=== PATIENT | female | born 1965 | race Caucasian/White ===

== ENCOUNTER 2016-08-05 19:57 | Emergency (ER) | payer OTHER ==
[~2016-08-05] VITALS: Ht 165.1 cm; Wt 89.8 kg
[~2016-08-05 19:57] MED LIST: MOTRIN600 MG PO; VITAMIN D50000 I2
[2016-08-05 20:16] VITALS: BP 137/73
--- NOTE | 2016-08-05 21:57 | NUR ---
TO ER OF2
--- NOTE | 2016-08-05 22:15 | NUR ---
Patient being evaluated by physician.
--- NOTE | 2016-08-05 22:28 | NUR ---
51Y/F PT. BIB FAMILY TO ED WITH C/O BOTH ANKLE PAIN X 2 DAYS. PT. STATES SLIDED 2 DAYS AGO, TODAY PAIN INCREASES WITH BOTH ANKLE SWELLING. AAO X4, AMBULATORY WITH ASSIST. BOTH ANKLES MILD SWELLING. C/O PAIN 01/15. VSS, NO S/SX OF DISTRESS NOTED. ER MD MADE AWARE OF PT. STATUS.
--- NOTE | 2016-08-05 22:30 | NUR ---
Patient discharged with v/s stable. Written and verbal after care instructions given and explained. Patient alert, oriented and verbalized understanding of instructions. Ambulatory with steady gait. All questions addressed prior to discharge. ID band removed. Patient advised to follow up with PMD. Rx of NORCO 7.5/325 MG given. Patient educated on indication of medication including possible reaction and side effects. Opportunity to ask questions provided and answered.
[2016-08-05 22:35] VITALS: BP 132/75
== END 2016-08-05 22:30 | disposition home or self-care (01) ==
LOC: MED 19:57
DX: S90.32XA Contusion of left foot, initial encounter (principal); S90.31XA Contusion of right foot, initial encounter; S80.212A Abrasion, left knee, initial encounter; S50.312A Abrasion of left elbow, initial encounter; X58.XXXA Exposure to other specified factors, initial encounter; Y93.89 Activity, other specified; Y92.89 Other specified places as the place of occurrence of the external cause; Y99.8 Other external cause status

== ENCOUNTER 2016-10-12 15:32 | Emergency (ER) | payer OTHER ==
[~2016-10-12] VITALS: Ht 165.1 cm; Wt 85.8 kg
[2016-10-12 15:49] VITALS: BP 120/69
[2016-10-12 16:36] LABS: APPEARANCE,URINE CLEAR (CLEAR); BILIRUBIN,URINE NEGATIVE (NEGATIVE); BLOOD, URINE NEGATIVE (NEGATIVE); COLOR,URINE YELLOW (YELLOW); LEUKOCYTE ESTERASE ,URINE NEGATIVE (NEGATIVE); NITRITE, URINE NEGATIVE (NEGATIVE); PROTEIN,URINE NEGATIVE (NEGATIVE); UGLUCOSE NEGATIVE (NEGATIVE); UROBILINOGEN,URINE 0.2 EU/dL (0.2 - 1)
[2016-10-12 16:43] LABS: BASOPHILS # (AUTO) 0.3 K/uL (0.00-0.22); EOSINOPHILS # (AUTO) 0.3 K/uL (0-0.4); HEMATOCRIT 41.2 % (36-48); HEMOGLOBIN 13.6 g/dL (12.0-16.0); MEAN CORPUSCULAR HEMOGLOBIN 32 pg (27-31); MEAN CORPUSCULAR HGB CONC 33 g/dL (33-37); MEAN CORPUSCULAR VOLUME 96 fL (80-94); MONOCYTES # (AUTO) 0.4 K/uL (0.8-1.0); MONOCYTES % (AUTO) 5.2 % (1.7-9.3); NEUTROPHILS # (AUTO) 4.2 K/uL (1.8-7.7); PLATELET COUNT (AUTO) 166 K/uL (140-450); RED BLOOD CELL COUNT(AUTO) 4.28 MIL/uL (4.20-5.40); RED CELL DISTRIBUTION WIDTH 12.2 % (11.6-13.7); WHITE BLOOD COUNT (AUTO) 7.2 K/uL (4.8-10.8)
[2016-10-12 17:04] LABS: ANION GAP 12.3 (8-16); CALCIUM 8.4 mg/dL (8.5-10.1); CARBON DIOXIDE 27.7 mmol/L (21-32); CREATININE 0.7 mg/dL (0.6-1.3)
[2016-10-12 17:09] LABS: ALBUMIN 3.9 g/dL (3.4-5.0); TOTAL BILIRUBIN 0.3 mg/dL (0.0-1.0)
--- NOTE | 2016-10-12 18:18 | NUR ---
PATIENT AMBULATED TO ER BED 3.
--- NOTE | 2016-10-12 18:20 | NUR ---
PATIENT PRESENTS TO ED WITH DIZZINESS . PT STATES . DENIES N/V/D; SKIN IS PINK/WARM/DRY; AAOX4 WITH EVEN AND STEADY GAIT; LUNGS CLEAR BL; HR EVEN AND REGULAR; PT DENIES ANY FEVER, CP, SOB, OR COUGH AT THIS TIME; PATIENT STATES PAIN OF 0/10 AT THIS TIME; VSS; PATIENT POSITIONED FOR COMFORT; HOB ELEVATED; BEDRAILS UP X2; BED DOWN. ER MD MADE AWARE OF PT STATUS.
[2016-10-12] MEDS ORDERED: NACL 0.9% 1,000 ML IV ONE (18:50)
[2016-10-12] MEDS ORDERED: MECLIZINE 25 MG TAB PO ONE (18:50)
--- NOTE | 2016-10-12 19:04 | NUR ---
IV 20GA PLACED BUT DC'D STYE INTACT, PT C/O PAIN TO SITE
--- NOTE | 2016-10-12 19:20 | NUR ---
PT RESTING IN BED, NO S/S OF DSITRESS NOTED AT THE MOMENT. WILL CONT TO MONITOR.
--- NOTE | 2016-10-12 20:08 | NUR ---
Dr. Murray evaluating patient at bedside.
[2016-10-12 20:30] VITALS: BP 124/63
--- NOTE | 2016-10-12 20:30 | NUR ---
Patient discharged with v/s stable. Written and verbal after care instructions given and explained. Patient alert, oriented and verbalized understanding of instructions. Ambulatory with steady gait. All questions addressed prior to discharge. ID band removed. Patient advised to follow up with PMD OR RETURN TO ER IF CONDITION WORSENS. Rx of MECLIZINE HYDROCHLORIDE given. Patient educated on indication of medication including possible reaction and side effects. Opportunity to ask questions provided and answered.
== END 2016-10-12 20:30 | disposition home or self-care (01) ==
LOC: MED 15:32
DX: H81.10 Benign paroxysmal vertigo, unspecified ear (principal); F17.210 Nicotine dependence, cigarettes, uncomplicated; Z71.6 Tobacco abuse counseling; Z88.0 Allergy status to penicillin
CPT/HCPCS: 36415; 70450; 80053; 81003; 81025; 84484; 85025; 93005; 96360; 99285; J7030; J8597

== ENCOUNTER 2017-01-14 16:20 | Emergency (ER) | payer OTHER ==
[~2017-01-14] VITALS: Ht 165.1 cm; Wt 89.9 kg
[2017-01-14 16:53] VITALS: BP 107/62
--- NOTE | 2017-01-14 19:18 | NUR ---
PT AMBULATED TO TF1
[2017-01-14] MEDS ORDERED: KETOROLAC 60 MG/2 ML VIAL IM ONE (19:30)
[2017-01-14 20:20] VITALS: BP 135/68
--- NOTE | 2017-01-14 20:28 | NUR ---
Patient discharged with v/s stable. Written and verbal after care instructions given and explained. Patient alert, oriented and verbalized understanding of instructions. Ambulatory with steady gait. All questions addressed prior to discharge. ID band removed. Patient advised to follow up with PMD. Rx of NORCO 5MG-325MG, MEDROL 4MG given. Patient educated on indication of medication including possible reaction and side effects. Opportunity to ask questions provided and answered.
== END 2017-01-14 20:18 | disposition home or self-care (01) ==
LOC: MED 16:20
DX: M54.42 Lumbago with sciatica, left side (principal); M54.41 Lumbago with sciatica, right side; Z88.0 Allergy status to penicillin
CPT/HCPCS: 72100; 96372; 99284; J1885

== ENCOUNTER 2017-07-17 21:39 | Emergency (ER) | payer OTHER ==
[~2017-07-17] VITALS: Ht 165.1 cm; Wt 90.7 kg
[2017-07-17 21:43] VITALS: BP 134/73
--- NOTE | 2017-07-17 22:24 | NUR ---
Patient ambulated to chair A. RN evaluating patient.
--- NOTE | 2017-07-17 23:11 | NUR ---
Dr. Zelaya evaluating patient.
[2017-07-18] VITALS: BP 129/65
--- NOTE | 2017-07-18 | NUR ---
Patient discharged with v/s stable. Written and verbal after care instructions given and explained. Patient alert, oriented and verbalized understanding of instructions. Ambulatory with steady gait. All questions addressed prior to discharge. ID band removed. Patient advised to follow up with PMD. Rx of Z-pack given. Patient educated on indication of medication including possible reaction and side effects. Opportunity to ask questions provided and answered.
== END 2017-07-18 | disposition home or self-care (01) ==
LOC: MED 21:39
DX: J32.9 Chronic sinusitis, unspecified (principal); J40 Bronchitis, not specified as acute or chronic; Z71.6 Tobacco abuse counseling; Z88.0 Allergy status to penicillin
CPT/HCPCS: 99283

== ENCOUNTER 2018-02-18 06:58 | Emergency (ER) | payer OTHER ==
[~2018-02-18] VITALS: Ht 165.1 cm; Wt 90.7 kg
[2018-02-18 07:02] VITALS: BP 110/65
[2018-02-18 07:36] VITALS: BP 112/68
== END 2018-02-18 07:42 | disposition home or self-care (01) ==
LOC: MED 06:58
DX: N39.0 Urinary tract infection, site not specified (principal); J45.909 Unspecified asthma, uncomplicated; Z88.0 Allergy status to penicillin; Z87.442 Personal history of urinary calculi
CPT/HCPCS: 81002; 99283

== ENCOUNTER 2018-04-01 13:12 | Emergency (ER) | payer OTHER ==
[~2018-04-01] VITALS: Ht 165.1 cm; Wt 94.3 kg
[2018-04-01 13:17] VITALS: BP 116/55
--- NOTE | 2018-04-01 13:17 | NUR ---
PT AMBULATED TO ER BED 02
--- NOTE | 2018-04-01 13:40 | NUR ---
C/O COUGH CONGESTION BODYACHES HEADACHE RHINORRHEA X 2 DAYS. DENIES N/V/D; SKIN IS PINK/WARM/DRY; AAOX4 WITH EVEN AND STEADY GAIT; LUNGS CLEAR BL; HR EVEN AND REGULAR; PT DENIES ANY FEVER, CP, SOB AT THIS TIME; PATIENT STATES PAIN OF 6/10 AT THIS TIME; VSS; PATIENT POSITIONED FOR COMFORT; HOB ELEVATED; BEDRAILS UP X2; BED DOWN. ER MD MADE AWARE OF PT STATUS.
[2018-04-01] MEDS ORDERED: CLINDAMYCIN 600 MG/4 ML VIAL IM ONE (13:55)
[2018-04-01] MEDS ORDERED: DEXAMETHASONE 10 MG/ML VIAL IM ONE (13:55)
[2018-04-01] MEDS ORDERED: ALBUTEROL SULFATE/IPRATROPIU 3 ML SOL IH ONE (13:55)
[2018-04-01] MEDS ORDERED: hydrOXYzine HCL 25 MG TAB PO ONE (13:55)
--- NOTE | 2018-04-01 14:00 | NUR ---
NO STATED NEEDS AT THIS TIME.
--- NOTE | 2018-04-01 14:18 | NUR ---
ADMITTING DX: COUGH HX: DENIES COPD ASTHMA SOB LOC AWAKE AND ALERT RESPONSIVE TO DINING ROOM SUPERVISOR VERBAL COMMANDS EDUCATION PROVIDED TO PATIENT WITH ACKNOWLEDGEMENT ON HHN THERAPY AND RESPIRATORY DRUG HHN THERAPY GIVEN ORDERED ENCOURAGE FOR INTERMITTENT DEEP BREATHING DURING THERAPY TOLERATED WELL WITHOUT INCIDENT
[2018-04-01 14:51] VITALS: BP 116/55
--- NOTE | 2018-04-01 14:52 | NUR ---
Patient discharged with v/s stable. Written and verbal after care instructions given and explained. Patient alert, oriented and verbalized understanding of instructions. Ambulatory with steady gait. All questions addressed prior to discharge. ID band removed. Patient advised to follow up with PMD. Rx of AZITHROMYCIN, PREDNISONE, PROMETHAZINE given. Patient educated on indication of medication including possible reaction and side effects. Opportunity to ask questions provided and answered.
== END 2018-04-01 14:52 | disposition home or self-care (01) ==
LOC: MED 13:12
DX: J32.9 Chronic sinusitis, unspecified (principal); J40 Bronchitis, not specified as acute or chronic; J45.909 Unspecified asthma, uncomplicated; Z88.0 Allergy status to penicillin
CPT/HCPCS: 94640; 96372; 99283; J1100; J3490; J7620

== ENCOUNTER 2018-06-05 13:18 | Emergency (ER) | payer OTHER ==
[~2018-06-05] VITALS: Ht 165.1 cm; Wt 95.7 kg
[2018-06-05 13:28] VITALS: BP 125/71
--- NOTE | 2018-06-05 13:31 | NUR ---
PT TRIAGED AND SENT TO ER LOBBY
--- NOTE | 2018-06-05 14:54 | NUR ---
PT TO ER BED 2
--- NOTE | 2018-06-05 15:00 | NUR ---
FIRST CONTACT WITH PATIENT PATIENT BIB SELF C/O L ARM AROUND DELTOID REGION PAIN SINCE THIS MORNING. PATIENT STATES " I DID NOT SLEEP ON IT, NO RECENT INJURY/TRAUMA." PATIENT +ROM, CAP REFILL IMMEDIATE DISTAL TO PAIN. PATIENT STATES PAIN WORSE WITH MOVEMENT, 7/10 PAIN, NON RADIAITING. PATIENT GCS 15, AAOX4, BREATHING IS EVEN AND UNLABORED, EQUAL RISE AND FALL OF CHEST. NO ACUTE DISTRESS NOTED, WILL CONTINUE TO MONITOR CLOSELY.
[2018-06-05 17:26] VITALS: BP 119/84
--- NOTE | 2018-06-05 17:27 | NUR ---
Patient discharged with v/s stable. Written and verbal after care instructions given and explained. Patient alert, oriented and verbalized understanding of instructions. Ambulatory with steady gait. All questions addressed prior to discharge. ID band removed. Patient advised to follow up with PMD. Rx of TRAMADOL, NAPROSYN given. Patient educated on indication of medication including possible reaction and side effects. Opportunity to ask questions provided and answered. NO SLING GIVEN. PATIENT REFUESED.
== END 2018-06-05 17:27 | disposition home or self-care (01) ==
LOC: MED 13:18
DX: M25.512 Pain in left shoulder (principal); Z88.0 Allergy status to penicillin; Z87.442 Personal history of urinary calculi
CPT/HCPCS: 73030; 99283; Q0092

== ENCOUNTER 2018-07-17 19:58 | Emergency (ER) | payer OTHER ==
[~2018-07-17] VITALS: Ht 165.1 cm; Wt 97.5 kg
[2018-07-17 20:04] VITALS: BP 121/65
--- NOTE | 2018-07-17 20:06 | NUR ---
TO LOBBY A/W BED, SUDHIR LEIJA NOTED
--- NOTE | 2018-07-17 20:21 | NUR ---
PT C/O L HEEL PAIN 9/10 SORENESS X 3 DAYS. DENIES TRAUMA, INJURY, NO DEFORMITY NOTED. CMS INTACT. PT ON CHAIR AWAITING MSE.
--- NOTE | 2018-07-17 20:22 | NUR ---
PA EVALUATING PT
[2018-07-17] MEDS ORDERED: KETOROLAC 30 MG/ML VIAL IM ONE (20:25)
--- NOTE | 2018-07-17 20:33 | NUR ---
PT TAKEN TO RAD AT THIS TIME VIA WHEELCHAIR
--- NOTE | 2018-07-17 20:39 | NUR ---
PT RETURNED FROM RAD VIA WHEELCHAIR
[2018-07-17 21:50] VITALS: BP 122/64
== END 2018-07-17 21:50 | disposition home or self-care (01) ==
LOC: MED 19:58
DX: M79.672 Pain in left foot (principal); J45.909 Unspecified asthma, uncomplicated; Z88.0 Allergy status to penicillin
CPT/HCPCS: 73630; 87804; 99283

== ENCOUNTER 2018-07-20 17:45 | Emergency (ER) | payer OTHER ==
[~2018-07-20] VITALS: Ht 165.1 cm; Wt 97.5 kg
[2018-07-20 17:51] VITALS: BP 132/79
--- NOTE | 2018-07-20 18:33 | NUR ---
Patient ambulated to bed 6. RN evaluating patient at bedside.
--- NOTE | 2018-07-20 18:55 | NUR ---
BIB SELF. AAOX4. C/O HEADACHE PAIN 10/ AND COUGH SINCE YESTERDAY, PAIN TO LEFT RIB WITH COUGH. PT STATES YELLOW PHLEGM UPON EXPECTORATION. NO SOB NOTED. HOB UP. BED SIDE RAILS UP X 1. ON LOW BED POSITION, LOCKED. ER MADE AWARE OF PT STATUS.
--- NOTE | 2018-07-20 19:15 | NUR ---
Pt report given to JADEN Mariee. Transfer of care at this time.
[2018-07-20] MEDS ORDERED: ACETAMIN/CODEINE 120/12MG-5ML 5 ML UDC PO ONE (19:50)
[2018-07-20] MEDS ORDERED: KETOROLAC 30 MG/ML VIAL IM ONE (19:50)
--- NOTE | 2018-07-20 19:55 | NUR ---
ENCOURAGED PT TO PROVIDE URINE SAMPLE.
--- NOTE | 2018-07-20 19:59 | NUR ---
[facility] HASTINGS COLLECTED AND SENT W/ ARCHITECTURAL PRACTICE MANAGER/
--- NOTE | 2018-07-20 20:04 | NUR ---
X-RAY AT BEDSIDE.
[2018-07-20 21:32] LABS: APPEARANCE,URINE CLEAR (CLEAR); BILIRUBIN,URINE NEGATIVE (NEGATIVE); BLOOD, URINE TRACE-I (NEGATIVE); COLOR,URINE YELLOW (YELLOW); LEUKOCYTE ESTERASE ,URINE TRACE (NEGATIVE); NITRITE, URINE NEGATIVE (NEGATIVE); PH,URINE 6.5 (5.0-9.0); UGLUCOSE NEGATIVE (NEGATIVE)
[2018-07-20 21:33] LABS: RBC,URINE 0-5 /HPF (0-5); WBC,URINE 0-5 /HPF (0-5)
[2018-07-20 22:22] VITALS: BP 138/79
--- NOTE | 2018-07-20 22:22 | NUR ---
Patient discharged with v/s stable. Written and verbal after care instructions given and explained. Patient alert, oriented and verbalized understanding of instructions. Ambulatory with steady gait. All questions addressed prior to discharge. ID band removed. Patient advised to follow up with PMD. Rx of TYLENOL 500MG AND NAPROSYN 500MG given. Patient educated on indication of medication including possible reaction and side effects. Opportunity to ask questions provided and answered.
== END 2018-07-20 22:22 | disposition home or self-care (01) ==
LOC: MED 17:45
DX: J06.9 Acute upper respiratory infection, unspecified (principal); R51 Headache; J45.909 Unspecified asthma, uncomplicated; Z88.0 Allergy status to penicillin
CPT/HCPCS: 71045; 81001; 81025; 87804; 96372; 99284; J1885; Q0092

== ENCOUNTER 2018-08-03 22:28 | Emergency (ER) | payer OTHER ==
[~2018-08-03] VITALS: Ht 165.1 cm; Wt 98.0 kg
[2018-08-03 22:31] VITALS: BP 144/77
--- NOTE | 2018-08-03 22:39 | NUR ---
PT AMBULATED TO THE LOBBY, VSS
--- NOTE | 2018-08-03 22:40 | NUR ---
PT AMBULATED TO BED 9
--- NOTE | 2018-08-03 22:47 | NUR ---
PT BIB SELF C/O COUGHING X2 WEEKS. PT STATES SHE HAS INTERMITTEN COUGHING SPELLS; DRYING HACKING COUGH, W/ YELLOWISH, GREEN PRODUCTION. PT STATES SHE QUIT SMOKING A MONTH AGO. --LUNG SOUNDS CLEAR BL. BREATHING EQUAL AND UNLABORED. DENIES N/V/D, CHILLS OR FEVER. PT STATES 0/10 PAIN. PT IN BED; BED IN LOWER LOCKED POSITION. PENDING ER MD AYALA. WILL CONTINUE TO MONITOR. PMH: HYPERLIPIDEMIA
[2018-08-03] MEDS ORDERED: ALBUTEROL SULFATE/IPRATROPIU 3 ML SOL IH ONE (23:10)
--- NOTE | 2018-08-03 23:11 | NUR ---
X-RAY AT BEDSIDE.
--- NOTE | 2018-08-03 23:40 | NUR ---
Anya montana in [facility] - 08/03/18 at 2343 by [email or web address] RT AT BEDSIDE.
[2018-08-04] MEDS ORDERED: predniSONE 20 MG TAB PO ONE (00:20)
--- NOTE | 2018-08-04 00:25 | NUR ---
DR JEREZ AT BEDSIDE
[2018-08-04 00:39] VITALS: BP 138/82
--- NOTE | 2018-08-04 00:40 | NUR ---
Patient discharged with v/s stable. Written and verbal after care instructions given and explained. Patient alert, oriented and verbalized understanding of instructions. Ambulatory with steady gait. All questions addressed prior to discharge. ID band removed. Patient advised to follow up with PMD. Rx of PREDNISONE, ALBUTEROL given. Patient educated on indication of medication including possible reaction and side effects. Opportunity to ask questions provided and answered.
== END 2018-08-04 00:40 | disposition home or self-care (01) ==
LOC: MED 22:28
DX: R05 Cough (principal); J45.909 Unspecified asthma, uncomplicated; F17.200 Nicotine dependence, unspecified, uncomplicated; Z88.0 Allergy status to penicillin
CPT/HCPCS: 71045; 94640; 94760; 99283; J7512; J7620; Q0092

== ENCOUNTER 2018-09-01 19:29 | Emergency (ER) | payer OTHER ==
[~2018-09-01] VITALS: Ht 165.1 cm; Wt 97.5 kg
--- NOTE | 2018-09-01 19:38 | NUR ---
Pt taken to bed 4.
[2018-09-01 19:40] VITALS: BP 136/72
--- NOTE | 2018-09-01 19:40 | NUR ---
PATIENT AMBULATED TO ER BED 4.
--- NOTE | 2018-09-01 19:55 | NUR ---
PT BIB SELF C/O BACK PAIN. PT STATES SUDDEN ONSET OF BACK PAIN X3 DAYS AGO; DENIES TRAUMA OR INJURY; PAIN IS 6/10 ACHING/SORE THROUGH OUT ENTIRE BACK AND SHOULERS. NO VISIBLE SIGNS OF SWELLING, REDNESS OR INJURY TO BACK OR SHOULDERS. AROM, AMBULATES W/ STEADY GAIT. --PT SITTING UP IN BED TALKING ON PHONE, BREATHING EQUAL AND UNLABORED. SPEAKING IN CLEAR AND COMPLETE SENTENCES. SAFETY PRECAUTIONS IN PLACE. PENDING ER MD AYALA. WILL CONTINUE TO MONITOR. PMH: DENIES
--- NOTE | 2018-09-01 20:22 | NUR ---
Anya montana in [facility] - 09/01/18 at [address] Abernathy evaluating patient at bedside.
--- NOTE | 2018-09-01 20:23 | NUR ---
Patient being evaluated by Dr. Abernathy at bedside.
[2018-09-01] MEDS ORDERED: KETOROLAC 60 MG/2 ML VIAL IM ONE (21:00)
[2018-09-01 21:32] LABS: APPEARANCE,URINE CLEAR (CLEAR); BILIRUBIN,URINE NEGATIVE (NEGATIVE); BLOOD, URINE NEGATIVE (NEGATIVE); COLOR,URINE YELLOW (YELLOW); NITRITE, URINE NEGATIVE (NEGATIVE); PH,URINE 6.5 (5.0-9.0); UGLUCOSE NEGATIVE (NEGATIVE)
[2018-09-01 21:35] LABS: LEUKOCYTE ESTERASE ,URINE NEGATIVE (NEGATIVE)
--- NOTE | 2018-09-01 22:45 | NUR ---
Patient discharged with v/s stable. Patient acting appropriatly, states pain has decreased to 3/10, states coping and will be following up with her primary health provider. Written and verbal after care instructions given and explained. Patient alert, oriented and verbalized understanding of instructions. Ambulatory with steady gait. All questions addressed prior to discharge. ID band removed. Rx of Naprosyn given. Patient educated on indication of medication including possible reaction and side effects. Opportunity to ask questions provided and answered.
[2018-09-01 22:46] VITALS: BP 129/78
== END 2018-09-01 22:45 | disposition home or self-care (01) ==
LOC: MED 19:29
DX: S39.012A Strain of muscle, fascia and tendon of lower back, initial encounter (principal); M54.6 Pain in thoracic spine; M25.512 Pain in left shoulder; J45.909 Unspecified asthma, uncomplicated; Z88.0 Allergy status to penicillin; X50.0XXA Overexertion from strenuous movement or load, initial encounter; Y93.89 Activity, other specified; Y92.89 Other specified places as the place of occurrence of the external cause; Y99.8 Other external cause status
CPT/HCPCS: 81003; 96372; 99283; J1885

== ENCOUNTER 2019-02-02 14:21 | Emergency (ER) | payer OTHER ==
[~2019-02-02] VITALS: Ht 165.1 cm; Wt 99.0 kg
[2019-02-02 15:19] VITALS: BP 123/66
--- NOTE | 2019-02-02 15:50 | NUR ---
PT BIBS. CAME IN FOR SIDE PAIN, NO PAIN ON URINATION. GAVE A URINE SAMPLE AT TIME OF TRIAGING. REPORTS FEVERS AND CHILLS. VSS. ALLERGY TO PENICILLIN. NO FLANK PAIN WHEN PALPATED. NO DISTENSION NOTED, CONTINENT. URINE IS YELOW AND HAZY. PMHX: KINDEY STONE 4YRS AGO RX: DENIES
[2019-02-02 15:55] VITALS: BP 123/66
--- NOTE | 2019-02-02 15:55 | NUR ---
PA EVALUATING PT AT BEDSIDE
[2019-02-02] MEDS ORDERED: KETOROLAC 60 MG/2 ML VIAL IM ONE (16:00)
--- NOTE | 2019-02-02 16:52 | NUR ---
Patient discharged with v/s stable. Written and verbal after care instructions given and explained. Patient alert, oriented and verbalized understanding of instructions. Ambulatory with steady gait. All questions addressed prior to discharge. ID band removed. Patient advised to follow up with PMD. Rx of FLEXERIL, MACROBID CAPSULE, PHENAZOPYRIDINE HYDROCHLORIDE given. Patient educated on indication of medication including possible reaction and side effects. Opportunity to ask questions provided and answered. VSS
== END 2019-02-02 16:52 | disposition home or self-care (01) ==
LOC: MED 14:21
DX: N39.0 Urinary tract infection, site not specified (principal); M54.5 Low back pain; J45.909 Unspecified asthma, uncomplicated; Z88.0 Allergy status to penicillin
CPT/HCPCS: 81002; 81025; 87086; 87186; 96372; 99283; J1885

== ENCOUNTER 2019-03-17 20:21 | Emergency (ER) | payer OTHER ==
[~2019-03-17] VITALS: Ht 165.1 cm; Wt 99.3 kg
[2019-03-17 20:35] VITALS: BP 137/74
--- NOTE | 2019-03-17 20:35 | NUR ---
53 Y/O FEMALE C/O OF CONSTIPATION SINCE TODAY. PAIN IS A 6/10 ACUTE PAIN THAT RADIATES TO THE LOWER ABDOMEN; SLIGHT TENDERNESS UPON PALPATION. ABDOMEN IS ROUND AND SOFT; BOWEL SOUNDS HEARD ON ALL FOUR QUADRANTS. LAST BOWEL MOVEMENT WAS YESTERDAY 03/16/10. NO CHANGES IN APPETITE. +NAUSEA; DENIES VOMITING. PATIENT STATES, " I JUST CAN'T GO. I'VE TRIED EVERYTHING". ERMD MADE AWARE OF STATUS. SIDE RAILSX1. PMH: HYPERLIPIDEMIA; ASTHMA RX: DENIES ALLERGIES: PCNS
--- NOTE | 2019-03-17 20:35 | NUR ---
TO BED # 12 AMBULATORY
[2019-03-17] MEDS ORDERED: MAGNESIUM CITRATE 300 ML BTL PO ONE (21:05)
--- NOTE | 2019-03-17 22:18 | NUR ---
PATIENT AMBULATED TO RESTROOM.
[2019-03-17] MEDS ORDERED: SODIUM PHOSPHATE 118 ML ENEM RC ONE (22:30)
[2019-03-17] MEDS ORDERED: LACTULOSE 20 GM/30 ML UDC PO ONE (22:30)
[2019-03-17 23:01] VITALS: BP 133/67
--- NOTE | 2019-03-17 23:01 | NUR ---
Patient discharged with v/s stable. Written and verbal after care instructions given and explained. Patient alert, oriented and verbalized understanding of instructions. Ambulatory with steady gait. All questions addressed prior to discharge. ID band removed. Patient advised to follow up with PMD. Rx of MIRALAX POWDER given. Patient educated on indication of medication including possible reaction and side effects. Opportunity to ask questions provided and answered.
== END 2019-03-17 23:01 | disposition home or self-care (01) ==
LOC: MED 20:21
DX: K59.00 Constipation, unspecified (principal); J45.909 Unspecified asthma, uncomplicated; Z88.0 Allergy status to penicillin
CPT/HCPCS: 99283

== ENCOUNTER 2019-05-01 20:22 | Emergency (ER) | payer OTHER ==
[~2019-05-01] VITALS: Ht 165.1 cm; Wt 99.8 kg
[2019-05-01 20:30] VITALS: BP 141/76
--- NOTE | 2019-05-01 20:35 | NUR ---
PATIENT AMB TO LOBBY.
--- NOTE | 2019-05-01 20:35 | NUR ---
54 y/o female c/o neck pain, denies n/v/d. +rom; denies fever chills. ermd made aware of status. pmh:hyperlipidemia rx:denies allergies:pcns
[2019-05-01 22:38] VITALS: BP 121/76
== END 2019-05-01 22:38 | disposition home or self-care (01) ==
LOC: MED 20:22
DX: S16.1XXA Strain of muscle, fascia and tendon at neck level, initial encounter (principal); J45.909 Unspecified asthma, uncomplicated; Z88.0 Allergy status to penicillin; X58.XXXA Exposure to other specified factors, initial encounter; Y93.89 Activity, other specified; Y92.89 Other specified places as the place of occurrence of the external cause; Y99.8 Other external cause status
CPT/HCPCS: 99282

== ENCOUNTER 2020-03-03 22:25 | Emergency (ER) | payer OTHER ==
[~2020-03-03] VITALS: Ht 165.1 cm; Wt 100.7 kg
[2020-03-03 22:31] VITALS: BP 169/89
--- NOTE | 2020-03-03 22:36 | NUR ---
54 YO F BIB SELF WITH C/C OF 8/10 SORE/SHARP RT ELBOW PAIN X2DAYS. PT STATED PAIN WORSENS ON MOVEMENT. LIMITED ROM DUE TO PAIN. DENIES FALL OR TRAUMA. RADIAL PULSES PRESENT AND BILAT. PT STATED SHE HAS BEEN TAKING IBUPROFEN FOR PAIN WITH LITTLE RELIEF. BED LOCKED IN LOWEST POSITION, SIDE RAILS X1. HX: DENIES RX: DENIES ALLERGY: PCN
--- NOTE | 2020-03-03 22:50 | NUR ---
ERMD AT BEDSIDE.
[2020-03-03] MEDS ORDERED: KETOROLAC 30 MG/ML VIAL IM ONE (23:00)
--- NOTE | 2020-03-03 23:02 | NUR ---
RAD AT BEDSIDE
--- NOTE | 2020-03-03 23:14 | NUR ---
EMT AT BEDSIDE FOR TX.
--- NOTE | 2020-03-03 23:32 | NUR ---
PT'S PAIN CONT 11/15. STATED SHE DOESN'T NEED FURTHER PAIN MANAGEMENT.
--- NOTE | 2020-03-03 23:34 | NUR ---
PTS RIGHT ELBOW WAS PLACED IN A ANGEL WRAP. PTS PMSC WNL. SHOULDER SLING PLACED TO IMOBOLIZE PTS RIGHT ARM .
[2020-03-03 23:40] VITALS: BP 169/89
== END 2020-03-03 23:40 | disposition home or self-care (01) ==
LOC: MED 22:25
DX: M25.521 Pain in right elbow (principal); J45.909 Unspecified asthma, uncomplicated; Z88.0 Allergy status to penicillin
CPT/HCPCS: 73080; 96372; 99283; J1885

== ENCOUNTER 2020-03-25 18:40 | Emergency (ER) | payer OTHER ==
[~2020-03-25] VITALS: Ht 165.1 cm; Wt 102.1 kg
[2020-03-25 18:48] VITALS: BP 152/88
--- NOTE | 2020-03-25 18:50 | NUR ---
Patient given urine cup and ambulated to lobby
[2020-03-25 19:49] LABS: APPEARANCE,URINE CLOUDY (CLEAR); BILIRUBIN,URINE NEGATIVE (NEGATIVE); BLOOD, URINE 3+ (NEGATIVE); COLOR,URINE AMBER (YELLOW); LEUKOCYTE ESTERASE ,URINE NEGATIVE (NEGATIVE); NITRITE, URINE NEGATIVE (NEGATIVE); UGLUCOSE NEGATIVE (NEGATIVE)
--- NOTE | 2020-03-25 20:05 | NUR ---
DISCHARGE AND RX INSTRUCTIONS GIVEN TO PT BY SUZIE DORSEY. PT SENT HOME WITH TYLENOL AND BACTRIM.
[2020-03-25 20:13] LABS: RBC,URINE >100 /HPF (0-5); WBC,URINE 0-5 /HPF (0-5)
== END 2020-03-25 20:05 | disposition home or self-care (01) ==
LOC: MED 18:40
DX: N39.0 Urinary tract infection, site not specified (principal); J45.909 Unspecified asthma, uncomplicated; Z88.0 Allergy status to penicillin; Z98.890 Other specified postprocedural states; Z87.442 Personal history of urinary calculi
CPT/HCPCS: 81001; 81025; 99283

== ENCOUNTER 2020-04-12 22:59 | Emergency (ER) | payer OTHER ==
[~2020-04-12] VITALS: Ht 165.1 cm; Wt 97.5 kg
[2020-04-12 23:42] VITALS: BP_SYST 127; BP_SYST 148; BP_DIAS 64; BP_DIAS 87
--- NOTE | 2020-04-12 23:56 | NUR ---
See complete assessment
--- NOTE | 2020-04-12 23:56 | NUR ---
patient seen by WINSTON.
[2020-04-13 00:49] LABS: ALBUMIN 4.3 g/dL (3.4-5.0); ANION GAP 13.8 (8-16); CARBON DIOXIDE 26.1 mmol/L (21-32); CREATININE 1.1 mg/dL (0.6-1.3); POTASSIUM 3.9 mmol/L (3.5-5.1); TOTAL BILIRUBIN 0.4 mg/dL (0.0-1.0)
[2020-04-13 02:06] LABS: BASOPHILS # (AUTO) 0.1 K/uL (0.00-0.22); BASOPHILS % (AUTO) 1.1 % (0.0-2.0); EOSINOPHILS # (AUTO) 0.3 K/uL (0-0.4); EOSINOPHILS % (AUTO) 4.1 % (0.0-4.0); HEMATOCRIT 39.5 % (36-48); HEMOGLOBIN 13.7 g/dL (12.0-16.0); LYMPHOCYTES # (AUTO) 2.2 K/uL (2.5-16.5); LYMPHOCYTES % (AUTO) 30.5 % (20.5-51.1); MEAN CORPUSCULAR HEMOGLOBIN 34 pg (27-31); MEAN CORPUSCULAR HGB CONC 35 g/dL (33-37); MEAN CORPUSCULAR VOLUME 97.4 fL (80-94); MONOCYTES # (AUTO) 0.4 K/uL (0.8-1.0); MONOCYTES % (AUTO) 6.1 % (1.7-9.3); NEUTROPHILS # (AUTO) 4.2 K/uL (1.8-7.7); NEUTROPHILS % (AUTO) 58.2 % (42.2-75.2); PLATELET COUNT (AUTO) 172 K/uL (140-450); RED BLOOD CELL COUNT(AUTO) 4.06 MIL/uL (4.20-5.40); RED CELL DISTRIBUTION WIDTH 13.1 % (11.6-13.7); WHITE BLOOD COUNT (AUTO) 7.1 K/uL (4.8-10.8)
--- NOTE | 2020-04-13 02:53 | NUR ---
Patient discharged with v/s stable. Written and verbal after care instructions given and explained. Patient alert, oriented and verbalized understanding of instructions. Ambulatory with steady gait. All questions addressed prior to discharge. ID band removed. Patient advised to follow up with PMD. Rx of motrin and bentyl given. Patient educated on indication of medication including possible reaction and side effects. Opportunity to ask questions provided and answered.
== END 2020-04-13 02:53 | disposition home or self-care (01) ==
LOC: MED 22:59
DX: R10.32 Left lower quadrant pain (principal); J45.909 Unspecified asthma, uncomplicated; E07.9 Disorder of thyroid, unspecified; F17.210 Nicotine dependence, cigarettes, uncomplicated; Z88.0 Allergy status to penicillin
CPT/HCPCS: 36415; 80053; 81002; 85025; 99284

== ENCOUNTER 2020-12-09 20:02 | Emergency (ER) | payer OTHER ==
[~2020-12-09] VITALS: Ht 165.1 cm; Wt 99.3 kg
[2020-12-09 20:40] VITALS: BP 150/90
--- NOTE | 2020-12-09 20:43 | NUR ---
TO LOBBY A/W BED AMBULATORY
[2020-12-09] MEDS ORDERED: DIPH25TA53 PO (23:14)
[2020-12-09] MEDS ORDERED: PRED20TA5 PO (23:14)
[2020-12-09] MEDS ORDERED: FAMO-90 PO (23:14)
--- NOTE | 2020-12-09 23:48 | NUR ---
seen by WINSTON no nursing interventions needed for patient
[2020-12-09 23:49] VITALS: BP 150/90
--- NOTE | 2020-12-09 23:49 | NUR ---
Patient discharged with v/s stable. Written and verbal after care instructions given and explained. Patient alert, oriented and verbalized understanding of instructions. Ambulatory with steady gait. All questions addressed prior to discharge. ID band removed. Patient advised to follow up with PMD. Rx of benadryl, pepcid, and deltasone given. Patient educated on indication of medication including possible reaction and side effects. Opportunity to ask questions provided and answered.
== END 2020-12-09 23:49 | disposition home or self-care (01) ==
LOC: MED 20:02
DX: R21 Rash and other nonspecific skin eruption (principal); J45.909 Unspecified asthma, uncomplicated; E07.9 Disorder of thyroid, unspecified; Z88.0 Allergy status to penicillin; Z79.899 Other long term (current) drug therapy
CPT/HCPCS: 99283

== ENCOUNTER 2021-04-14 15:39 | Emergency (ER) | payer OTHER ==
[~2021-04-14] VITALS: Ht 165.1 cm; Wt 100.2 kg
[~2021-04-14 15:39] MED LIST changes: +DIPH25TA53 PO; +FAMO-90 PO; -MOTRIN600 MG PO; +PRED20TA5 PO; -VITAMIN D50000 I2
[2021-04-14 16:07] VITALS: BP 142/98
[2021-04-14] MEDS ORDERED: CYCL-711 PO (17:02)
[2021-04-14] MEDS ORDERED: NAPR-54 PO (17:02)
--- NOTE | 2021-04-14 17:07 | NUR ---
NO NURSING INTERVENTIONS PROVIDED
--- NOTE | 2021-04-14 17:08 | NUR ---
Patient discharged with v/s stable. Written and verbal after care instructions ABOUT MUSCLE STRAIN given and explained. Patient alert, oriented and verbalized understanding of instructions. Ambulatory with steady gait. All questions addressed prior to discharge. ID band removed. Patient advised to follow up with PMD. Rx of NAPROXEN AND FLEXERIL given. Patient educated on indication of medication including possible reaction and side effects. Opportunity to ask questions provided and answered.
== END 2021-04-14 17:08 | disposition home or self-care (01) ==
LOC: MED 15:39
DX: S39.012A Strain of muscle, fascia and tendon of lower back, initial encounter (principal); E07.9 Disorder of thyroid, unspecified; F17.210 Nicotine dependence, cigarettes, uncomplicated; Z88.0 Allergy status to penicillin; Z79.899 Other long term (current) drug therapy; X58.XXXA Exposure to other specified factors, initial encounter; Y93.89 Activity, other specified; Y92.89 Other specified places as the place of occurrence of the external cause; Y99.8 Other external cause status; J45.909 Unspecified asthma, uncomplicated
CPT/HCPCS: 72072; 99283

== ENCOUNTER 2021-06-04 21:59 | Emergency (ER) | payer OTHER ==
[~2021-06-04] VITALS: Ht 165.1 cm; Wt 99.8 kg
[~2021-06-04 21:59] MED LIST changes: +CYCL-711 PO; +NAPR-54 PO
[2021-06-04 22:10] VITALS: BP 154/81
[2021-06-04] MEDS ORDERED: KETOROLAC 60 MG/2 ML VIAL IM ONE (22:40)
[2021-06-04] MEDS ORDERED: ACET-8386 PO (22:46)
[2021-06-04] MEDS ORDERED: SULF-59 PO (22:46)
[2021-06-04] MEDS ORDERED: IBUP-2213 PO (22:46)
[2021-06-04 23:00] VITALS: BP 154/81
== END 2021-06-04 23:00 | disposition home or self-care (01) ==
LOC: MED 21:59
DX: M54.50 Low back pain, unspecified (principal); L03.032 Cellulitis of left toe; J45.909 Unspecified asthma, uncomplicated; F17.200 Nicotine dependence, unspecified, uncomplicated; E78.5 Hyperlipidemia, unspecified; E03.9 Hypothyroidism, unspecified; Z87.442 Personal history of urinary calculi; Z88.0 Allergy status to penicillin; Z79.899 Other long term (current) drug therapy
CPT/HCPCS: 81002; 81025; 96372; 99283; J1885

== ENCOUNTER 2021-08-13 23:15 | Emergency (ER) | payer OTHER ==
[~2021-08-13] VITALS: Ht 165.1 cm; Wt 104.3 kg
[~2021-08-13 23:15] MED LIST changes: +ACET-8386 PO; +IBUP-2213 PO; +SULF-59 PO
[2021-08-13 23:28] VITALS: BP 120/73
--- NOTE | 2021-08-13 23:33 | NUR ---
Patient ambulated to bed 9.
--- NOTE | 2021-08-13 23:34 | NUR ---
Dr. Argueta at bedside to exam patient.
[2021-08-13] MEDS ORDERED: SULFAMETH/TRIMETH DS 800/160MG 1 TAB PO ONE (23:50)
[2021-08-13] MEDS ORDERED: SULF-59 PO (23:50)
[2021-08-14 00:45] VITALS: BP 120/73
== END 2021-08-14 00:45 | disposition home or self-care (01) ==
LOC: MED 23:15
DX: L03.112 Cellulitis of left axilla (principal); J45.909 Unspecified asthma, uncomplicated; Z88.0 Allergy status to penicillin
CPT/HCPCS: 99283

== ENCOUNTER 2021-09-26 17:02 | Emergency (ER) | payer OTHER ==
[~2021-09-26] VITALS: Ht 165.1 cm; Wt 106.6 kg
[2021-09-26 17:26] VITALS: BP 153/102
--- NOTE | 2021-09-26 17:35 | NUR ---
56 Y/O FEMALE BB SELF C/O COUGH, DIFFICULTY BREATHING, RUNNY NOSE XTODAY. ORAL TEMP 100.2 AT THIS TIME. COVID TESTED NEGATIVE TODAY. PT STATES SHE HAS CHEST PAIN ASSOCIATED WITH COUGHING. PT DENIES N,V,D. PT DENIES BHATTI, DIZZINESS. PT DENIES ANY SICK CONTACTS AT HOME. PT PLACED ON MONITOR. BED LOCKED IN LOWEST POSITION. BED RAIL X1. PMH:COPD
--- NOTE | 2021-09-26 17:36 | NUR ---
PT AMB TO BED1.
[2021-09-26] MEDS ORDERED: ALBUTEROL SULFATE/IPRATROPIU 3 ML SOL IH ONE (17:50)
[2021-09-26 18:05] LABS: BASOPHILS % (AUTO) 0.4 % (0.0-2.0); EOSINOPHILS # (AUTO) 0.1 K/uL (0-0.4); EOSINOPHILS % (AUTO) 1.4 % (0.0-4.0); HEMATOCRIT 39.3 % (36-48); HEMOGLOBIN 13.3 g/dL (12.0-16.0); LYMPHOCYTES # (AUTO) 0.8 K/uL (2.5-16.5); LYMPHOCYTES % (AUTO) 8.3 % (20.5-51.1); MEAN CORPUSCULAR HEMOGLOBIN 32 pg (27-31); MEAN CORPUSCULAR HGB CONC 34 g/dL (33-37); MEAN CORPUSCULAR VOLUME 96.1 fL (80-94); MONOCYTES # (AUTO) 0.4 K/uL (0.8-1.0); MONOCYTES % (AUTO) 4.5 % (1.7-9.3); NEUTROPHILS # (AUTO) 7.8 K/uL (1.8-7.7); NEUTROPHILS % (AUTO) 85.4 % (42.2-75.2); PLATELET COUNT (AUTO) 181 K/uL (140-450); RED BLOOD CELL COUNT(AUTO) 4.09 MIL/uL (4.20-5.40); RED CELL DISTRIBUTION WIDTH 13.8 % (11.6-13.7); WHITE BLOOD COUNT (AUTO) 9.1 K/uL (4.8-10.8)
[2021-09-26 18:18] LABS: CREATININE 0.9 mg/dL (0.6-1.3)
[2021-09-26] MEDS ORDERED: ALBUTEROL 0.083% 2.5 MG/3 ML NEBU INH ONE (18:35)
--- NOTE | 2021-09-26 18:42 | NUR ---
RT AT PT BEDSIDE
[2021-09-26] MEDS ORDERED: AZIT250T4 PO (19:17)
[2021-09-26] MEDS ORDERED: FLUT1DSK IH (19:17)
--- NOTE | 2021-09-26 19:22 | NUR ---
Pt report given to JADEN CHAVIS. Transfer of care at this time.
[2021-09-26] MEDS ORDERED: BPM/118S31 PO (19:28)
[2021-09-26 19:31] VITALS: BP 153/102
--- NOTE | 2021-09-26 19:33 | NUR ---
Patient discharged with v/s stable. Written and verbal after care instructions given and explained. Patient alert, oriented and verbalized understanding of instructions. Ambulatory with steady gait. All questions addressed prior to discharge. ID band removed. Patient advised to follow up with PMD. Rx of ADVAIR 100-50 AND ZITHROMAX Z PACK given. Patient educated on indication of medication including possible reaction and side effects. Opportunity to ask questions provided and answered.
== END 2021-09-26 19:33 | disposition home or self-care (01) ==
LOC: MED 17:02
DX: J44.9 Chronic obstructive pulmonary disease, unspecified (principal); R09.89 Other specified symptoms and signs involving the circulatory and respiratory systems; F17.210 Nicotine dependence, cigarettes, uncomplicated
CPT/HCPCS: 36415; 71045; 80048; 84484; 85025; 93005; 94640; 99285

== ENCOUNTER 2022-03-18 18:43 | Emergency (ER) | payer OTHER ==
[~2022-03-18] VITALS: Ht 165.1 cm; Wt 103.0 kg
[~2022-03-18 18:43] MED LIST changes: +AZIT250T4 PO; +BPM/118S31 PO; +FLUT1DSK IH
[2022-03-18 19:10] VITALS: BP 146/72
--- NOTE | 2022-03-18 19:13 | NUR ---
to lobby a/w bed ambulatory
[2022-03-18] MEDS ORDERED: KETOROLAC 30 MG/ML VIAL IM ONE (19:35)
--- NOTE | 2022-03-18 19:52 | NUR ---
ATTEMPTED TO CALL PATIENT TO MEDICATE, WITH NO RESPONSE.
[2022-03-18 20:00] LABS: APPEARANCE,URINE CLEAR (CLEAR); BILIRUBIN,URINE NEGATIVE (NEGATIVE); BLOOD, URINE TRACE-I (NEGATIVE); COLOR,URINE YELLOW (YELLOW); LEUKOCYTE ESTERASE ,URINE NEGATIVE (NEGATIVE); NITRITE, URINE POSITIVE (NEGATIVE); PH,URINE 5.5 (5.0-9.0); UGLUCOSE TRACE (NEGATIVE)
[2022-03-18 20:26] LABS: RBC,URINE 0-5 /HPF (0-5)
[2022-03-18] MEDS ORDERED: NAPR-1704 PO (20:57)
[2022-03-18] MEDS ORDERED: NITR100C7 PO (20:57)
[2022-03-18] MEDS ORDERED: KETOROLAC 30 MG/ML VIAL ONE (21:43)
--- NOTE | 2022-03-18 21:45 | NUR ---
FIRST CONTACT WITH PT. PT MEDICATED AT THIS TIME. SEE INITIAL ASSESSMENT. NO S/S OF DISTRESS NOTED AT THIS TIME.
[2022-03-18 21:57] VITALS: BP 146/72
--- NOTE | 2022-03-18 21:57 | NUR ---
Patient discharged with v/s stable. Written and verbal after care instructions given and explained. Patient alert, oriented and verbalized understanding of instructions. Ambulatory with steady gait. All questions addressed prior to discharge. ID band removed. Patient advised to follow up with PMD. Rx of naprosyn, macrobid given. Patient educated on indication of medication including possible reaction and side effects. Opportunity to ask questions provided and answered.
--- NOTE | 2022-03-21 14:05 | NUR ---
LATE ENTRY. RECEIVED POSITIVE URINE CULTURE. FORM GIVEN TO DR ROSA. TREATMENT APPROPRIATE. FORM PLACED IN BINDER.
== END 2022-03-18 21:57 | disposition home or self-care (01) ==
LOC: MED 18:43
DX: S39.012A Strain of muscle, fascia and tendon of lower back, initial encounter (principal); E03.9 Hypothyroidism, unspecified; X58.XXXA Exposure to other specified factors, initial encounter; Y93.89 Activity, other specified; Y92.89 Other specified places as the place of occurrence of the external cause; Y99.8 Other external cause status
CPT/HCPCS: 72072; 72100; 81001; 87086; 96372; 99284; J1885

== ENCOUNTER 2022-03-20 23:32 | Emergency (ER) | payer OTHER ==
[~2022-03-20] VITALS: Ht 165.1 cm; Wt 103.0 kg
[~2022-03-20 23:32] MED LIST changes: -ACET-8386 PO; +ACET-8905 PO; +NAPR-1704 PO; +NITR100C7 PO
[2022-03-20 23:45] VITALS: BP 156/76
--- NOTE | 2022-03-20 23:48 | NUR ---
TO LOBBY A/W BED AMBULATORY
[2022-03-21] MEDS ORDERED: ACETAMINOPHEN EXTRA STRENGTH 500 MG TAB PO ONE (00:50)
[2022-03-21] MEDS ORDERED: IBUPROFEN 600 MG TAB PO ONE (00:50)
[2022-03-21 01:33] LABS: LIPASE 90 U/L (73-393)
[2022-03-21 01:35] LABS: ALBUMIN 3.7 g/dL (3.4-5.0); ANION GAP 6.5 (8-16); CARBON DIOXIDE 32.7 mmol/L (21-32); CREATININE 0.9 mg/dL (0.6-1.3); POTASSIUM 4.2 mmol/L (3.5-5.1); TOTAL BILIRUBIN 0.4 mg/dL (0.0-1.0)
[2022-03-21 01:44] LABS: BASOPHILS % (AUTO) 0.6 % (0.0-2.0); EOSINOPHILS # (AUTO) 0.2 K/uL (0-0.4); HEMATOCRIT 39.1 % (36-48); LYMPHOCYTES % (AUTO) 27.3 % (20.5-51.1); MEAN CORPUSCULAR HEMOGLOBIN 32 pg (27-31); MEAN CORPUSCULAR HGB CONC 33 g/dL (33-37); MEAN CORPUSCULAR VOLUME 97.1 fL (80-94); MONOCYTES # (AUTO) 0.5 K/uL (0.8-1.0); MONOCYTES % (AUTO) 6.2 % (1.7-9.3); NEUTROPHILS # (AUTO) 4.7 K/uL (1.8-7.7); NEUTROPHILS % (AUTO) 62.9 % (42.2-75.2); PLATELET COUNT (AUTO) 184 K/uL (140-450); RED BLOOD CELL COUNT(AUTO) 4.02 MIL/uL (4.20-5.40); RED CELL DISTRIBUTION WIDTH 13.2 % (11.6-13.7); WHITE BLOOD COUNT (AUTO) 7.5 K/uL (4.8-10.8)
--- NOTE | 2022-03-21 04:22 | NUR ---
RECEIVED IN BED 8 AT THIS TIME
[2022-03-21 04:42] LABS: APPEARANCE,URINE CLEAR (CLEAR); BILIRUBIN,URINE NEGATIVE (NEGATIVE); BLOOD, URINE 1+ (NEGATIVE); COLOR,URINE YELLOW (YELLOW); LEUKOCYTE ESTERASE ,URINE NEGATIVE (NEGATIVE); NITRITE, URINE NEGATIVE (NEGATIVE); PH,URINE 5.5 (5.0-9.0); UGLUCOSE NEGATIVE (NEGATIVE)
[2022-03-21 05:33] LABS: RBC,URINE 0-5 /HPF (0-5); WBC,URINE 0-5 /HPF (0-5)
[2022-03-21] MEDS ORDERED: GUAI10LI4 PO (06:03)
[2022-03-21 06:05] VITALS: BP 156/76
== END 2022-03-21 06:05 | disposition home or self-care (01) ==
LOC: MED 23:32
DX: J06.9 Acute upper respiratory infection, unspecified (principal); Z20.822 Contact with and (suspected) exposure to COVID-19; M54.50 Low back pain, unspecified; J45.909 Unspecified asthma, uncomplicated; E03.9 Hypothyroidism, unspecified; Z88.0 Allergy status to penicillin; Z79.899 Other long term (current) drug therapy
CPT/HCPCS: 36415; 71045; 80053; 81001; 83690; 83880; 84484; 85025; 87086; 93005; 99285

== ENCOUNTER 2022-04-12 11:10 | Emergency (ER) | payer OTHER ==
[~2022-04-12] VITALS: Ht 165.1 cm; Wt 107.5 kg
[~2022-04-12 11:10] MED LIST changes: +GUAI10LI4 PO
[2022-04-12 11:22] VITALS: BP 140/70
--- NOTE | 2022-04-12 11:35 | NUR ---
56F presents to ED with c/o of right sided throat pain x2days. Pt reports pain only upon palpation or turning head. Pt denies cold symptoms, or med use. No swelling or redness noted upon assessment.
[2022-04-12] MEDS ORDERED: BENZ-300 PO (12:02)
--- NOTE | 2022-04-12 12:25 | NUR ---
SWAB COLLECTED AND WALKED TO LAB.
== END 2022-04-12 12:22 | disposition home or self-care (01) ==
LOC: MED 11:10
DX: J02.9 Acute pharyngitis, unspecified (principal); J45.909 Unspecified asthma, uncomplicated; E03.9 Hypothyroidism, unspecified; R03.0 Elevated blood-pressure reading, without diagnosis of hypertension; Z88.0 Allergy status to penicillin
CPT/HCPCS: 87081; 99283

== ENCOUNTER 2022-04-27 16:41 | Emergency (ER) | payer OTHER ==
[~2022-04-27] VITALS: Ht 172.7 cm; Wt 81.6 kg
[~2022-04-27 16:41] MED LIST changes: +BENZ-300 PO
[2022-04-27 16:53] VITALS: BP 140/75
--- NOTE | 2022-04-27 16:59 | NUR ---
patient ambulatory to ER c/o trouble breathing with 93% on r/a PLACE IN ROOM 1 AWAITING FOR EDP FOR INITIAL ASSESSMENT, WILL CONTINUE TO MONITOR.
[2022-04-27] MEDS ORDERED: methylPREDNISolone SS 125 MG/2 ML VIAL IVP ONE (17:15)
[2022-04-27] MEDS ORDERED: ALBUTEROL SULFATE/IPRATROPIU 3 ML SOL IH ONE ×2 (17:15→18:45)
--- NOTE | 2022-04-27 17:46 | NUR ---
PATIENT IS GIGING BREATHING TREATMENT.
[2022-04-27] MEDS ORDERED: methylPREDNISolone SS 125 MG/2 ML VIAL IM ONE (17:55)
[2022-04-27 18:07] LABS: BASOPHILS # (AUTO) 0.1 K/uL (0.00-0.22); BASOPHILS % (AUTO) 0.9 % (0.0-2.0); EOSINOPHILS # (AUTO) 0.3 K/uL (0-0.4); EOSINOPHILS % (AUTO) 4.7 % (0.0-4.0); HEMOGLOBIN 13.5 g/dL (12.0-16.0); LYMPHOCYTES # (AUTO) 1.7 K/uL (2.5-16.5); LYMPHOCYTES % (AUTO) 27.3 % (20.5-51.1); MEAN CORPUSCULAR HEMOGLOBIN 33 pg (27-31); MEAN CORPUSCULAR HGB CONC 35 g/dL (33-37); MEAN CORPUSCULAR VOLUME 96.3 fL (80-94); MONOCYTES # (AUTO) 0.5 K/uL (0.8-1.0); MONOCYTES % (AUTO) 7.5 % (1.7-9.3); NEUTROPHILS # (AUTO) 3.7 K/uL (1.8-7.7); NEUTROPHILS % (AUTO) 59.6 % (42.2-75.2); PLATELET COUNT (AUTO) 181 K/uL (140-450); RED BLOOD CELL COUNT(AUTO) 4.05 MIL/uL (4.20-5.40); RED CELL DISTRIBUTION WIDTH 13.4 % (11.6-13.7); WHITE BLOOD COUNT (AUTO) 6.1 K/uL (4.8-10.8)
--- NOTE | 2022-04-27 18:18 | NUR ---
X-RAY AT BEDSIDE.
[2022-04-27 18:33] LABS: ALBUMIN 4.5 g/dL (3.4-5.0); ANION GAP 13.8 (8-16); CARBON DIOXIDE 27.8 mmol/L (21-32); CREATININE 0.8 mg/dL (0.6-1.3); POTASSIUM 3.6 mmol/L (3.5-5.1); TOTAL BILIRUBIN 0.3 mg/dL (0.0-1.0)
[2022-04-27] MEDS ORDERED: ALBU0.0912 INH (20:16)
[2022-04-27] MEDS ORDERED: PRED20TA5 PO (20:16)
[2022-04-27] MEDS ORDERED: DOXY-690 PO (20:16)
--- NOTE | 2022-04-27 20:35 | NUR ---
Patient discharged with v/s stable. Written and verbal after care instructions given and explained. Patient alert, oriented and verbalized understanding of instructions. Ambulatory with steady gait. All questions addressed prior to discharge. ID band removed. Patient advised to follow up with PMD. Rx of PROVENTIL DOXYCYCLINE PREDNISONE given.
== END 2022-04-27 20:35 | disposition home or self-care (01) ==
LOC: MED 16:41
DX: J44.1 Chronic obstructive pulmonary disease with (acute) exacerbation (principal); J18.9 Pneumonia, unspecified organism; E03.9 Hypothyroidism, unspecified; F17.200 Nicotine dependence, unspecified, uncomplicated; Z88.0 Allergy status to penicillin
CPT/HCPCS: 36415; 71045; 80053; 83880; 84484; 85025; 93005; 94640; 96372; 99285; J2930

== ENCOUNTER 2022-08-26 14:29 | Emergency (ER) | payer OTHER ==
[~2022-08-26] VITALS: Ht 165.1 cm; Wt 110.2 kg
[~2022-08-26 14:29] MED LIST changes: +ALBU0.0912 INH; +DOXY-690 PO
[2022-08-26 15:04] VITALS: BP 129/64
--- NOTE | 2022-08-26 15:33 | NUR ---
SEEN BY CM WILEY PENDING D/C HOME.
[2022-08-26] MEDS ORDERED: AZIT250T4 PO (15:41)
[2022-08-26] MEDS ORDERED: FLONAS NS (15:41)
[2022-08-26] MEDS ORDERED: [UNRECOGNIZED DRUG - CODE] PO (15:41)
== END 2022-08-26 15:59 | disposition home or self-care (01) ==
LOC: MED 14:29
DX: H65.192 Other acute nonsuppurative otitis media, left ear (principal); E03.9 Hypothyroidism, unspecified; Z88.0 Allergy status to penicillin; Z79.899 Other long term (current) drug therapy
CPT/HCPCS: 99281

== ENCOUNTER 2023-04-19 23:26 | Emergency (ER) | payer OTHER ==
[~2023-04-19] VITALS: Ht 165.1 cm; Wt 100.4 kg
[~2023-04-19 23:26] MED LIST changes: -BPM/118S31 PO; +BROM118S70 PO; +FLONAS NS; +[UNRECOGNIZED DRUG - CODE] PO
[2023-04-19 23:50] VITALS: BP 149/79; PULSE 76; RESP 17; TEMP 97.8; O2SAT 95
[2023-04-20] MEDS ORDERED: KETOROLAC 30 MG/ML VIAL IM ONE (01:00)
[2023-04-20 01:18] VITALS: O2SAT 98
[2023-04-20 01:31] LABS: APPEARANCE,URINE HAZY (CLEAR); BILIRUBIN,URINE NEGATIVE (NEGATIVE); BLOOD, URINE NEGATIVE (NEGATIVE); COLOR,URINE YELLOW (YELLOW); LEUKOCYTE ESTERASE ,URINE TRACE (NEGATIVE); NITRITE, URINE POSITIVE (NEGATIVE); PROTEIN,URINE NEGATIVE (NEGATIVE); UGLUCOSE NEGATIVE (NEGATIVE); UROBILINOGEN,URINE 0.2 EU/dL (0.2 - 1)
[2023-04-20 01:40] LABS: BACTERIA,URINE 3+ /HPF (None Seen); RBC,URINE 0-5 /HPF (0-5); WBC,URINE 20-60 /HPF (0-5)
[2023-04-20] MEDS ORDERED: CIPR500T4 PO (02:00)
[2023-04-20] MEDS ORDERED: OFLO5SOL27 RIGHT EAR (02:00)
[2023-04-20] MEDS ORDERED: LID5T TP (02:00)
[2023-04-20] MEDS ORDERED: ACET-8905 PO (02:00)
[2023-04-20 02:23] VITALS: BP 135/69; PULSE 67; RESP 14; O2SAT 98
[2023-04-20] MEDS ORDERED: TRAM-748 PO (02:53)
== END 2023-04-20 02:21 | disposition home or self-care (01) ==
LOC: MED 23:26
DX: N39.0 Urinary tract infection, site not specified (principal); H74.8X1 Other specified disorders of right middle ear and mastoid; E03.9 Hypothyroidism, unspecified; Z98.890 Other specified postprocedural states; Z79.899 Other long term (current) drug therapy; Z79.2 Long term (current) use of antibiotics; Z79.1 Long term (current) use of non-steroidal anti-inflammatories (NSAID); Z88.0 Allergy status to penicillin
CPT/HCPCS: 71046; 81001; 87086; 96372; 99284; J1885

== ENCOUNTER 2023-07-28 12:32 | Emergency (ER) | payer OTHER ==
[~2023-07-28] VITALS: Ht 165.1 cm; Wt 99.3 kg
[~2023-07-28 12:32] MED LIST changes: +CIPR500T4 PO; +LID5T TP; +NAPR-337 PO; -NAPR-54 PO; +OFLO5SOL27 RIGHT EAR; +TRAM-748 PO; +[UNRECOGNIZED DRUG - CODE] PO; -[UNRECOGNIZED DRUG - CODE] PO
[2023-07-28 12:40] VITALS: BP 127/68; PULSE 112; RESP 20; TEMP 99.6; O2SAT 94
[2023-07-28] MEDS ORDERED: ERGO-30 PO (12:50)
[2023-07-28] MEDS ORDERED: LEVO0.1212 PO (12:50)
[2023-07-28] MEDS ORDERED: METF-346 PO (12:50)
[2023-07-28] MEDS ORDERED: [UNRECOGNIZED DRUG - CODE] PO (12:50)
[2023-07-28 12:55] VITALS: O2SAT 92
[2023-07-28 13:21] LABS: BASOPHILS # (AUTO) 0.1 K/uL (0.00-0.22); BASOPHILS % (AUTO) 0.5 % (0.0-2.0); EOSINOPHILS # (AUTO) 0.2 K/uL (0-0.4); EOSINOPHILS % (AUTO) 1.4 % (0.0-4.0); HEMOGLOBIN 13.4 g/dL (12.0-16.0); LYMPHOCYTES # (AUTO) 1.3 K/uL (2.5-16.5); LYMPHOCYTES % (AUTO) 9.4 % (20.5-51.1); MEAN CORPUSCULAR HEMOGLOBIN 33 pg (27-31); MEAN CORPUSCULAR HGB CONC 35 g/dL (33-37); MEAN CORPUSCULAR VOLUME 94.4 fL (80-94); MONOCYTES # (AUTO) 0.9 K/uL (0.8-1.0); MONOCYTES % (AUTO) 6.4 % (1.7-9.3); NEUTROPHILS # (AUTO) 11.2 K/uL (1.8-7.7); NEUTROPHILS % (AUTO) 82.3 % (42.2-75.2); PLATELET COUNT (AUTO) 195 K/uL (140-450); RED BLOOD CELL COUNT(AUTO) 4.13 MIL/uL (4.20-5.40); RED CELL DISTRIBUTION WIDTH 14.2 % (11.6-13.7); WHITE BLOOD COUNT (AUTO) 13.6 K/uL (4.8-10.8)
[2023-07-28 13:27] LABS: BILIRUBIN,URINE NEGATIVE (NEGATIVE); BLOOD, URINE TRACE-I (NEGATIVE); COLOR,URINE YELLOW (YELLOW); LEUKOCYTE ESTERASE ,URINE 1+ (NEGATIVE); NITRITE, URINE POSITIVE (NEGATIVE); PROTEIN,URINE NEGATIVE (NEGATIVE); UGLUCOSE NEGATIVE (NEGATIVE); UROBILINOGEN,URINE 0.2 EU/dL (0.2 - 1)
[2023-07-28 13:28] LABS: APPEARANCE,URINE HAZY (CLEAR)
[2023-07-28 13:35] LABS: ANION GAP 13.4 (8-16); CALCIUM 8.7 mg/dL (8.5-10.1); CARBON DIOXIDE 24.6 mmol/L (21-32); CREATININE 0.9 mg/dL (0.6-1.3)
[2023-07-28 13:40] LABS: BACTERIA,URINE 2+ /HPF (None Seen); MUCUS,URINE 1+ /LPF (None Seen); RBC,URINE 0-5 /HPF (0-5); SQUAMOUS EPITHELIAL CELL,UR 4-10 (MOD) /LPF (0-3 (FEW)); URINE AMORPHOUS URATE 1+ /HPF (None Seen)
[2023-07-28 13:40] LABS: ALBUMIN 3.8 g/dL (3.4-5.0); TOTAL BILIRUBIN 0.5 mg/dL (0.0-1.0); TOTAL PROTEIN, SERUM 7.1 g/dL (6.4-8.2)
[2023-07-28] MEDS ORDERED: VIB100 PO (14:03)
== END 2023-07-28 15:00 | disposition home or self-care (01) ==
LOC: MED 12:32
DX: N39.0 Urinary tract infection, site not specified (principal); E03.9 Hypothyroidism, unspecified; E78.5 Hyperlipidemia, unspecified; Z88.0 Allergy status to penicillin; Z79.899 Other long term (current) drug therapy
CPT/HCPCS: 36415; 80053; 81001; 83690; 85025; 87086; 87186; 99283